=== PATIENT | female | born 1980 | race Caucasian/White ===

== ENCOUNTER 2025-04-01 18:13 | Emergency (ER) | payer BC, SELFPAY ==
--- OUTSIDE RECORDS SUMMARY | 2025-03-31 09:40 | XMS_ITS | Encounter Summary ---
Author Organization [facility] Address Counts include 234 beds at the [facility] [place] [address] Care Team Providers Care S[employer] Business [employer] Consultant Name Role Phone Heather Sauceda NP Primary Care Provider [phone] Reason for Referral * Medication Prior Authorization - Pending Review Specialty Diagnoses / Procedures Referred By Contac t Referred To Contact Diagnoses Migraine with aura and without status migrainosus, not intractable Heather Sauceda NP [address] [facility] [address] [place] [address] Phone: tel: fax: Referral ID Status Reason Start Date Expiration Date V isits Requested Visits Authorized [id number] Pending Review 06 24 Reason for Visit * Reason Comments Annual Patient is here for annual exam. 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 Will have a procedure April 12 to have it removed. Encounter Details Date Type Department Care Team (Late st Contact Info) Description 03/31/2025 9:40 AM CDT Office Visit [facility] - [place] [address] [place], [place] [id number] Heather Sauceda NP [address] [place], [place] [id number] Annual (Patient is here for annual exam. 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 Will have a procedure April 12 to have it removed. ) Social History Tobacco Use Types Packs/Day Years Used Date Smoking Tobacco: Former Cigarettes 0.5 10 Q uit: 05/04/2012 Passive Smoke Exposure: Past Smokeless Tobacco: Former Alcohol Use Standard Drinks/Week Comments Yes 23.3 (1 standard drink = 0.6 oz pure alcohol) 2 beers daily PHQ-2 Answer Date Recorded Patient Health Questionnaire-2 Score 0 03/31/2025 Comments No Sex and Gender Information Value Date Recorded Sex Assigned at Female 11/05/2024 7:22 AM CDT Legal Sex Female 10:54 AM CDT Gender Identity Female 11/24/2024 9:36 AM CDT Sexual Orientation Not on file documented as of this encounter Last Filed Vital Signs Vital Sign Reading Time Taken Comments Blood Pressure 158/102 03/31/2025 10:33 AM CDT Pulse 100 03/31/2025 10:02 AM CDT Temperature 36.8 C (98.3 F) 03/31/2025 10:02 AM CDT Respiratory Rate 20 03/31/2025 10:02 AM CDT Oxygen Saturation 100% 03/31/2025 10:02 AM CDT Inhaled Oxygen Concentration - - Weight 46.7 kg (103 lb) 03/31/2025 10:02 AM CDT Height 160 cm (5' 3) 03/31/2025 10:02 AM CDT Body Mass Index 18.25 03/31/2025 10:02 AM CDT documented in this encounter Functional Status * Over the past 2 weeks, how often have you been bothered by any of the following problems? Question Answer Date of Assessment Author Status Little interest or pleasure in doing things Not at all 03/31/2025 9:58 AM CDT Fozia Iniguez LP N Active Feeling down, depressed, or hopeless Not at all 03/31/2025 9:58 AM CDT Fozia Iniguez LPN Active Patient Health Questionnaire-2 Score 0 03/31/2025 9:58 AM CDT Fozia Iniguez LPN A ctive * Question Answer Date of Assessment Author Status Trouble falling or staying asleep, or sleeping too much Not at all 03/31/2025 9:58 AM CDT Fozia Iniguez LPN Active Feeling tired or having little energy Not at all 03/31/2025 9:58 AM CDT Fozia Iniguez LPN Active Poor appetite or overeating Several days 03/31/2025 9:58 AM CDT Fozia Iniguez LPN Active Feeling bad about yourself - or that you are a failure or have let yourself or your family down Not at all 03/31/2025 9:58 AM CDT Fozia Iniguez LPN Active Trouble concentrating on things, such as reading the newspaper or watching television Several days 03/31/2025 9:58 AM CDT Fozia Iniguez LPN Active Moving or speaking so slowly that other people could have noticed? Or the opposite - being so fidgety or restless that you have been moving around a lot more than usual. More than half the days 03/31/2025 9:58 AM CDT Fozia Iniguez LPN Active Thoughts that you would be better off or hurting yourself in some way Not at all 03/31/2025 9:58 AM CDT Fozia Iniguez LPN Active Patient Health Questionnaire-9 Score 4 03/31/2025 9:58 AM CDT Fozia Iniguez LPN Active * If you checked off any problems on this questionnaire so far, Question Answer Date of Assessment Author Status How difficult have these problems made it for you to do your work, take care of things at home, or get along with other people? Somewhat difficult 03/31/2025 9:58 AM CDT Fozia Iniguez LPN Active * Over the last 2 weeks, how often have you been bothered by any of the following problems? Question Answer Date of Assessment Author Status Feeling nervous, anxious, or on edge 3 03/31/2025 10:01 AM CDT Fozia Iniguez LPN Active Not being able to stop or control worrying 3 03/31/2025 10:01 AM CDT Fozia Iniguez LPN Activ e Worrying too much about different things 1 03/31/2025 10:01 AM CDT Fozia Iniguez LPN Activ e Trouble relaxing 3 03/31/2025 10:01 AM CDT Fozia Iniguez LPN Active Being so restless that it is hard to sit still 3 03/31/2025 10:01 AM CDT Fozia Iniguez LPN Acti ve Becoming easily annoyed or irritable 1 03/31/2025 10:01 AM CDT Foiza Iniguez LPN Active Feeling afraid as if something awful might happen 3 03/31/2025 10:01 AM CDT José Luis Iniguez LPN Active NIKOLAS-7 Total Score 17 03/31/2025 10:01 AM CDT Fozia Lopez LPN Active documented as of this encounter Patient Instructions * Patient Instructions* Heather Sauceda NP - 03/31/2025 9:40 AM CDT [facility] Address: [facility], [address] [place] [address] Add olmesartan Continue metoprolol Follow up in 1 mo documented in this encounter Progress Notes * Heather Sauceda NP - 03/31/2025 9:40 AM CDTSummary: annual physical Images from the original note were not included. ANNUAL PHYSICAL NOTES Encounter Date: 03/31/2025 Chief Complaint: 44-year-old female presents for Annual (Patient is here for annual exam. 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 Will have a procedure April 12 to have it removed. ) . HPI: The patient is being seen for a health maintenance evaluation. The last health maintenance exam wasone year ago. EGD showed gastric mass with Dr. Story, referred to [facility] unable to biopsy during EGD will need EUS scheduled [facility] April 12 Weight is steady previously had trouble with weight loss. Oatmeal with protein powder Rice with tuna [place] and ham sandwiches. Lunchables, bananas, pretzils czech yogurt Adds mcdonalds chicken nuggets if she exercises Abdominal migraine Stable improved with Elavil Saw neurology, added imitrex recommended treating like migraine attacks. Imitrex causes sedation and headaches sometimes. Anxiety Improved with Elavil, rare use of Ativan HTN BP elevated at home on metoprolol 100mg daily General Health: good Dental Health: Rare dental visits, Brushes regularly, and Flosses regularly Vision Health: Wears contacts Hearing Health: No hearing problems Immunizations Needed: Influenza Weight: Normal BMI Body mass index is 18.25 kg/m??. Physical Activity: Acitve lifestyle and cycling Cervical Cancer Screening: last done a few years ago, scheduled OBGYN May. Breast Cancer Screening: Last mammogram: 11/2024 Colorectal Cancer Screening: scheduled next year at age 45 however may do early at [facility] Metabolic Screening: Patient has not been screened previously within the past year. HCV Screening: Patient does not meet criteria for screening PHQ-9 Screening Score: PHQ-9: 03/31/2025 9:58 AM 12/16/2024 10:03 AM PHQ2/PHQ 9 DEPRESSION SCREEN QUESTIONAIRE Little interest or pleasure in doing things Not at all Not at all Feeling down, depressed, or hopeless Not at all Not at all Patient Health Questionnaire-2 Score 0 0 Trouble falling or staying asleep, or sleeping too much Not at all Not at all Feeling tired or having little energy Not at all Not at all Poor appetite or overeating Several days Not at all Feeling bad about yourself - or that you are a failure or have let yourself or your family down Notat all Not at all Trouble concentrating on things, such as reading the newspaper or watching television Several days Not at all Moving or speaking so slowly that other people could have noticed? Or the opposite - being so fidgety or restless that you have been moving around a lot more than usual. Over half Not at all Thoughts that you would be better off or hurting yourself in some way Not at all Not at all Patient Health Questionnaire-9 Score 4 0 How difficult have these problems made it for you to do your work, take care of things at home, or get along with other people? Somewhat difficult Not difficult at all NIKOLAS-7 (Generalized Anxiety Disorder) Screening 10/20/2024 3:10 PM 03/31/2025 10:01 AM NIKOLAS-7 Feeling nervous, anxious, or on edge 1 3 Not being able to stop or control worrying 1 3 Worrying too much about different things 0 1 Trouble relaxing 1 3 Being so restless that it is hard to sit still 0 3 Becoming easily annoyed or irritable 0 1 Feeling afraid as if something awful might happen 1 3 NIKOLAS-7 Total Score 4 17 How difficult have these problems made it for you to do your work, take care of things at home, or get along with other people? Extremely difficult Somewhat difficult Smoking Status: History Smoking Status Former Types: Cigarettes Smokeless Tobacco Former Patient does not meet criteria for Low Dose CT screening Sleep Apnea Risk Factors: None Review of Systems Constitutional: Negative for activity change, appetite change, fatigue, fever and unexpected weightchange. HENT: Negative. Eyes: Negative. Respiratory: Negative. Cardiovascular: Negative. Gastrointestinal: Negative. Endocrine: Negative. Genitourinary: Negative. Musculoskeletal: Negative. Skin: Negative. Neurological: Negative. Psychiatric/Behavioral: Negative. Patient Active Problem List Diagnosis Benign essential hypertension Generalized anxiety disorder Cyclical vomiting Sludge in gallbladder Migraine with aura and without status migrainosus, not intractable Nausea and vomiting, unspecified vomiting type Pain of upper abdomen Duodenogastric reflux History of gastritis Adenomatous duodenal polyp Gastric tumor Past Medical History[1] Past Surgical History[2] Family History[3] Social History Socioeconomic History Marital status: Spouse name: Not on file Number of children: Not on file Years of education: Not on file Highest education level: Not on file Occupational History Not on file Tobacco Use Smoking status: Former Current packs/day: 0.00 Average packs/day: 0.5 packs/day for 10.0 years (5.0 ttl pk-yrs) Types: Cigarettes Quit date: 05/04/2012 Years since quittin.9 Passive exposure: Past Smokeless tobacco: Former Vaping Use Vaping status: Every Day Substances: Nicotine Devices: Pre-filled pod Substance and Sexual Activity Alcohol use: Yes Alcohol/week: 23.3 standard drinks of alcohol Types: 14 Cans of beer per week Comment: 2 beers daily Drug use: Yes Types: Marijuana Sexual activity: Yes Partners: Male Other Topics Concern Not on file Social History Narrative Lives with spouse and step children. Social Drivers of Health Financial Resource Strain: Not on file Food Insecurity: Not on file Transportation Needs: Not on file Physical Activity: Not on file Stress: Not on file Social Connections: Not on file Intimate Partner Violence: Not on file Housing Stability: Not on file Immunization History Administered Date(s) Administered Fluzone (IIV3, Trivalent, 0.5 ML Prefilled Syringe) 03/31/2025 Influenza (Generic) 03/29/2024 Influenza Adult (Generic) 04/22/2019, 03/25/2022, 03/11/2023 PFIZER COVID-19 (12+) MRNA, LNP-S, PF, KEITH-SUCROSE, 30 MCG/0.3 ML (COMIRNATY) 03/11/2023, 03/29/2024 PFIZER COVID-19 (ORIGINAL FORMULATION, PURPLE CAP) mRNA, LNP-S, PF, 30 MCG/0.3 ML DOSE 08/29/2020, 09/26/2020, 04/25/2021 PFIZER COVID-19 BIVALENT (12+) mRNA, LNP-S, PF, 30 MCG/0.3 ML DOSE 03/25/2022 Tdap (Generic) 08/20/2024 Current Outpatient Medications Medication Sig Dispense Refill amitriptyline (ELAVIL) 50 MG tablet Take 1 tablet (50 mg total) by mouth nightly at bedtime. 90 tablet 1 cholestyramine (QUESTRAN) 4 G packet MIX AND DRINK 1 PACKET(4 GRAMS) BY MOUTH TWICE DAILY WITH MEALS 180 each 2 LORazepam (ATIVAN) 1 MG tablet Take 1 tablet (1 mg total) by mouth daily as needed. 30 tablet 0 metoprolol succinate ER (TOPROL-XL) 100 MG 24 hr tablet Take 1 tablet (100 mg total) by mouth daily. 30 tablet 0 Na sulfate-K sulfate-Mg sulfate (SUPREP BOWEL PREP) 17.5-3.13-1.6 GM/177ML Solution Take 177 mLs bymouth every 12 (twelve) hours. See [facility] mL 0 olmesartan (BENICAR) 20 MG tablet Take 1 tablet (20 mg total) by mouth daily. 30 tablet 2 ondansetron (ZOFRAN-ODT) 4 MG disintegrating tablet Take 1 tablet (4 mg total) by mouth every 8 (eight) hours as needed for Nausea. 30 tablet 0 pantoprazole EC (PROTONIX) 40 MG tablet TAKE 1 TABLET(40 MG) BY MOUTH DAILY 90 tablet 2 SUMAtriptan (IMITREX) 50 MG tablet Take 1 tablet (50 mg total) by mouth 2 (two) times daily as needed for Migraine. Max of 4 tablets (200 mg) in 24 hours. 30 tablet 11 ubrogepant (UBRELVY) 100 MG tablet Take 1 tablet (100 mg total) by mouth daily as needed for Migraine. May repeat dose in 2 hours. Max of 2 tablets (200 mg) in 24 hours 10 tablet 1 No current facility-administered medications for this visit. Current Outpatient Medications on File Prior to Visit Medication Sig amitriptyline (ELAVIL) 50 MG tablet Take 1 tablet (50 mg total) by mouth nightly at bedtime. cholestyramine (QUESTRAN) 4 G packet MIX AND DRINK 1 PACKET(4 GRAMS) BY MOUTH TWICE DAILY WITH MEALS metoprolol succinate ER (TOPROL-XL) 100 MG 24 hr tablet Take 1 tablet (100 mg total) by mouth daily. Na sulfate-K sulfate-Mg sulfate (SUPREP BOWEL PREP) 17.5-3.13-1.6 GM/177ML Solution Take 177 mLs bymouth every 12 (twelve) hours. See GI instructions [facility] ondansetron (ZOFRAN-ODT) 4 MG disintegrating tablet Take 1 tablet (4 mg total) by mouth every 8 (eight) hours as needed for Nausea. pantoprazole EC (PROTONIX) 40 MG tablet TAKE 1 TABLET(40 MG) BY MOUTH DAILY SUMAtriptan (IMITREX) 50 MG tablet Take 1 tablet (50 mg total) by mouth 2 (two) times daily as needed for Migraine. Max of 4 tablets (200 mg) in 24 hours. No current facility-administered medications on file prior to visit. Review of patient's allergies indicates: No Known Allergies Objective: Filed Vitals: 03/31/25 1002 03/31/25 1033 BP: (!) 151/117 (!) 158/102 Pulse: 100 Resp: 20 Temp: 98.3 ??F (36.8 ??C) TempSrc: Core SpO2: 100% Weight: 46.7 kg (103 lb) Height: 1.6 m (5' 3) Physical Exam Constitutional: Appearance: Normal appearance. HENT: Right Ear: Tympanic membrane and ear canal normal. Left Ear: Tympanic membrane and ear canal normal. Mouth/Throat: Mouth: Mucous membranes are moist. Eyes: Pupils: Pupils are equal, round, and reactive to light. Neck: Thyroid: No thyroid mass, thyromegaly or thyroid tenderness. Cardiovascular: Rate and Rhythm: Normal rate and regular rhythm. Heart sounds: Normal heart sounds. No murmur heard. Pulmonary: Effort: Pulmonary effort is normal. No respiratory distress. Breath sounds: Normal breath sounds. No wheezing. Abdominal: General: Abdomen is flat. Bowel sounds are normal. Palpations: Abdomen is soft. Tenderness: There is no abdominal tenderness. Musculoskeletal: Cervical back: Normal range of motion and neck supple. Right lower leg: No edema. Left lower leg: No edema. Lymphadenopathy: Cervical: No cervical adenopathy. Skin: General: Skin is warm and dry. Neurological: General: No focal deficit present. Mental Status: She is alert. Psychiatric: Mood and Affect: Mood normal. Behavior: Behavior normal. Procedures Assessment & Plan: Neva was seen today for annual. Diagnoses and all orders for this visit: Annual physical exam -Patient past medical, surgical, family history and social history updated. Allergies, immunizations and medications updated. Also did discuss healthy lifestyle including exercising, dietary changes and safe sexual practices as well as safe habits common to patient age group including wearing seat belt when transporting in a vehicle and limiting alcohol and avoiding smoking/second hand smoking. -Discussed breast cancer screening and screen per patient preference and guidelines. Self-breast exams are a level D recommendation by the USPSTF. Follow up with primary care provider or gynecologistif any abnormalities are noted. Mammograms should continue annually. Reviewed with the patient BMI,blood pressure, diet, exercise, and encouraged healthy lifestyle choices. I recommended weight-bearing exercise to decrease risks of osteoporosis. Screened for substance use, risk factors for STIs, diet and exercise habits, and symptoms of depression. Colon screening starting at 45. Recommended preventive immunizations according to age Mammogram UTD Colonoscopy will be completed next year unless sooner by GI at [facility] Flu shot today Scheduled with OBGYN May Anxiety Stable with Amitriptyline, rare use of Ativan. Refill PRN. - LORazepam (ATIVAN) 1 MG tablet; Take 1 tablet (1 mg total) by mouth daily as needed. Migraine with aura and without status migrainosus, not intractable Continue Elavil daily Sumatriptan causes sedation and headaches. Order Ubrelvy. - ubrogepant (UBRELVY) 100 MG tablet; Take 1 tablet (100 mg total) by mouth daily as needed for Migraine. May repeat dose in 2 hours. Max of 2 tablets (200 mg) in 24 hours Gastric tumor Recent EGD, EUS at [facility] on 04/12 Adenomatous duodenal polyp Removed, follow up with GI Need for immunization against influenza - [68814] Flu Vaccine, 0.5 mL, 6+ Months (Single Dose Syringe Fluarix, Fluzone, Flulaval, or Afluria) Benign essential hypertension Elevated today and at home Continue metoprolol, add olmesartan - olmesartan (BENICAR) 20 MG tablet; Take 1 tablet (20 mg total) by mouth daily. I personally spent a total of 45 minutes on the day of the encounter. This includes qxmo-cw-ivxy and qur-lywl-lt-face time I provided on the day of the encounter & excludes time spent performing separately reportable services. RTC 1 mo HTN, gastric mass s/p EGD, migraines DILAN: This dictation was at least in part performed using [employer] speak and there may be some inherent flaws in this tabulating clerk due to the nature of this program. HEATHER SAUCEAD NP 03/31/2025 [1] Past Medical History: Diagnosis Date Anxiety Depression Hypertension On BP medicine to control [2] Past Surgical History: Procedure Laterality Date EGD EXTRACT ERUPT TOOTH PONV [3] Family History Problem Relation Name Age of Onset Hypertension Mother Kailyn Fiber myalgia, depression, brain anyeresum, migraines Anxiety Mother Kailyn Depression Mother Kailyn Heart Attack Father Diabetes Maternal Grandfather Korey singh Diabetes Paternal Grandfather Heart Attack Paternal Grandfather documented in this encounter Plan of Treatment Upcoming Encounters Date Type Department Care Team (Latest Contact Info) Description 04/21/2025 9:00 AM CDT Office Visit [facility] [address] [facility] [address] [place] [address] Amirah Martinez NP [address] [facility] [address] [place] [address] 05/12/2025 9:00 AM BUILDING PERFORMANCE SPECIALIST [facility] [place] [address] [place] [address] Heather Sauceda NP [address] [place] [address] 11/09/2025 8:20 AM CDT Hospital Encounter [facility] [address] [place] [address] Osvaldo Story MD [address] [facility] [address] [place] [id number] 11/09/2025 8:20 AM CDT - 11/09/2025 8:53 AM CDT Surgery [facility] [address] [place] [address] Osvaldo Story MD [address] [facility] [address] [place] [id number] COLONOSCOPY SCREENING Scheduled Procedures Name Priority Associated Diagnoses Date/Ti me COLONOSCOPY SCREENING Encounter for screening colonoscopy 11/09/2025 8:20 AM CDT documented as of this encounter Visit Diagnoses Diagnosis Annual physical exam- Primary Routine general medical examination at a health care facility Anxiety Anxiety state, unspecified Migraine with aura and without status migrainosus, not intractable Migraine with aura, without mention of intractable migraine without mention of status migrainosus Gastric tumor Neoplasm of unspecified nature of digestive system Adenomatous duodenal polyp Other specified disorder of stomach and duodenum Need for immunization against influenza Need for prophylactic vaccination and inoculation against influenza Benign essential hypertension Essential hypertension, benign Encounter for screening colonoscopy Special screening for malignant neoplasms, colon documented in this encounter Additional Health Concerns Assessment Noted Time PHQ-9 Depression Total Score: 4 03/31/20 25 9:58 AM CDT documented as of this encounter Care Teams [employer] Business [employer] Consultant Relationship Specialty Start Date End Date Heather Sauceda, CELL BIOLOGIST [address] [facility] [address] [place] [address] PCP - General NURSE PRACTITIONER 10/07/24 documented as of this encounter
[2025-04-01] VITALS (11 sets, daily range): BP systolic 130–201; BP diastolic 87–145; PULSE 123–151; RESP 14–35; TEMP 37.1–37.7; O2SAT 98–100
--- NOTE | ~2025-04-01 | CT_ITS ---
CT abdomen pelvis w con Clinical History: abdominal pain . Comparison: None Technique: Axial images lung bases to symphysis pubis 100 mL Omnipaque 350 Coronal, sagittal reformats CT images acquired with automatic exposure control for dose reduction DLP: 201 mGy-cm Findings: Lung bases: Clear. Visualized heart and pericardium: Unremarkable. Liver: Steatosis. Mildly enlarged. Gallbladder: Unremarkable. Spleen: Unremarkable. Pancreas: Unremarkable. Adrenal glands: Unremarkable. Kidneys: Right kidney- No hydronephrosis. No renal stones. Left kidney- No hydronephrosis. No renal stones. Distal esophagus/stomach: Apparent wall thickening gastric antrum likely merely underdistention. Small bowel loops: Normal caliber and wall thickness. Colon: Diffuse wall thickening. Normal appendix. Nodes: No enlarged nodes. Peritoneum: No ascites. No free air. Urinary bladder: Unremarkable. Uterus: Nabothian cysts. 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 Adnexa: No masses. Prominent cystic focus right side deep hemipelvis. Bones: No acute bony abnormality. Soft tissues: Unremarkable. Aorta: No aneurysm or dissection. IVC: Unremarkable. Main portal vein/SMV/splenic vein: Patent. Findings conveyed via telephone by myself to Dr. Gallo at 10:00 AM EST. IMPRESSION: 1. Colitis. Reviewed, dictated and finalized at location R. IMPRESSION: 1. Colitis.
--- NOTE | 2025-04-01 18:28 | ED_ITS ---
HPI - General Adult General Chief complaint: Nausea/Vomiting/Diarrhea <Tia Vargas October, - Last Filed: 04/01/25 18:39> Stated complaint: Vomiting abdominal pain. 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 Complains of having severe upper abdominal pain. GENERAL: in no acute distress. HEAD: Normocephalic, atraumatic. CHEST: Clear to auscultation. ?No respiratory distress. HEART: Regular rate and rhythm.? NEURO: ?Alert and oriented x3. Patient screened in triage and initial orders placed.? ?Additional care and disposition to be based upon?diagnostic testing and treatment. 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 Complains of having severe upper abdominal pain. GENERAL: in no acute distress. HEAD: Normocephalic, atraumatic. CHEST: Clear to auscultation. ?No respiratory distress. HEART: Regular rate and rhythm.? NEURO: ?Alert and oriented x3. Patient screened in triage and initial orders placed.? ?Additional care and disposition to be based upon?diagnostic testing and treatment. <Rosina Wang, AUDIO VISUAL DESIGN ENGINEER - Last Filed: 04/02/25 01:29> History of Present Illness HPI narrative: I agree with the HPI above. <Rosina Wang, AUDIO VISUAL DESIGN ENGINEER - Last Filed: 04/02/25 01:29> Related Data Allergies/adverse reactions: Allergies Allergy/AdvReac Type Severity Reaction Status Date / Time No Known Allergies Allergy Verified 04/01/25 18:16 <Tia Urbina, AUDIO VISUAL DESIGN ENGINEER - Last Filed: 04/01/25 18:39> Review of Systems 2 Review of Systems: All systems reviewed & are unremarkable except as noted in HPI and below <Rosina Wang APRN - Last Filed: 04/02/25 01:29> Exam 2 Narrative: GENERAL: Ill appearing, well-nourished, non-toxic, in mild distress due to pain. HEAD: Normocephalic, atraumatic. NECK: Supple. No adenopathy, no masses. RESPIRATORY: Airway patent, respirations nonlabored. Clear to auscultation bilaterally, no rales, rhonchi, wheezing. CARDIOVASCULAR: Tachycardia without murmurs, rubs, or gallops. Peripheral pulses 2+ and equal bilaterally. ABDOMINAL: Soft, generalized tenderness, nondistended, no hepatosplenomegaly. Normoactive BS. MUSCULOSKELETAL: Moves all extremities. Strength/ROM intact without gross deformities. SKIN: Warm, dry, normal color. No rashes. NEURO: A&O X3. Speech clear. Cranial nerves II-XII intact. No ataxic movements. PSYCHIATRIC: Appropriate mood and affect. Normal interaction. <Rosina Wang, AUDIO VISUAL DESIGN ENGINEER - Last Filed: 04/02/25 01:29> Course Vital Signs Vital signs: Vital Signs Temperature 99.9 F H 04/01/25 19:29 Pulse Rate 141 H 04/01/25 19:29 Respiratory Rate 18 04/01/25 19:29 Blood Pressure 187/133 H 04/01/25 19:29 Pulse Oximetry 100 04/01/25 19:29 Oxygen Delivery Room Air 04/01/25 19:29 Temperature 98.7 F 04/01/25 22:59 Pulse Rate 140 H 04/02/25 01:20 Respiratory Rate 17 04/02/25 00:31 Blood Pressure 133/89 04/02/25 00:31 Pulse Oximetry 99 04/02/25 01:07 Oxygen Delivery Room Air 04/01/25 19:29 <Tia Urbina, AUDIO VISUAL DESIGN ENGINEER - Last Filed: 04/01/25 18:39> Vital Signs Temperature 99.9 F H 04/01/25 19:29 Pulse Rate 141 H 04/01/25 19:29 Respiratory Rate 18 04/01/25 19:29 Blood Pressure 187/133 H 04/01/25 19:29 Pulse Oximetry 100 04/01/25 19:29 Oxygen Delivery Room Air 04/01/25 19:29 Temperature 98.7 F 04/01/25 22:59 Pulse Rate 140 H 04/02/25 01:20 Respiratory Rate 17 04/02/25 00:31 Blood Pressure 133/89 04/02/25 00:31 Pulse Oximetry 99 04/02/25 01:07 Oxygen Delivery Room Air 04/01/25 19:29 <Rosina Wang, ALONZO - Last Filed: 04/02/25 01:29> Vital Signs Temperature 99.9 F H 04/01/25 19:29 Pulse Rate 141 H 04/01/25 19:29 Respiratory Rate 18 04/01/25 19:29 Blood Pressure 187/133 H 04/01/25 19:29 Pulse Oximetry 100 04/01/25 19:29 Oxygen Delivery Room Air 04/01/25 19:29 Temperature 98.7 F 04/01/25 22:59 Pulse Rate 140 H 04/02/25 01:20 Respiratory Rate 17 04/02/25 00:31 Blood Pressure 133/89 04/02/25 00:31 Pulse Oximetry 99 04/02/25 01:07 Oxygen Delivery Room Air 04/01/25 19:29 <Brown Gallo MD - Last Filed: 04/02/25 09:13> Medical Decision Making MDM Narrative Medical decision making narrative: Neva Gonzalez is a 44 y/o with PMhx of pyloric valve dysfunction, abdominal migraines, and 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 Pt reports she uses marijuana intermittently. Labs Ordered: CBC, CMP, lipase, UA, UDS, lactic acid Imaging Ordered: CT abdomen/pelvis Medications Ordered: 2 L normal saline IV bolus, Zofran 4 mg IV, hydralazine 20 mg IV, GI cocktail p.o., Haldol 5 mg IM Patient has chosen to refuse further care. Risks of an incomplete evaluation and treatment were discussed with the patient, including potential for or permanent disability. After treatment of her symptoms patient's heart rate remains in the 140s. Patient seems to understand the risks associated with this, but still desires to refuse further care. Patient recommended to follow up with PCP in the next possible interval. Specifically, patient was told they can return to the ED at any time to resume care. 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 Pt reports she uses marijuana intermittently. Labs Ordered: CBC, CMP, lipase, UA, UDS, lactic acid Imaging Ordered: CT abdomen/pelvis Medications Ordered: 2 L normal saline IV bolus, Zofran 4 mg IV, hydralazine 20 mg IV, GI cocktail p.o., Haldol 5 mg IM Patient has chosen to refuse further care. Risks of an incomplete evaluation and treatment were discussed with the patient, including potential for or permanent disability. After treatment of her symptoms patient's heart rate remains in the 140s. Patient seems to understand the risks associated with this, but still desires to refuse further care. Patient recommended to follow up with PCP in the next possible interval. Specifically, patient was told they can return to the ED at any time to resume care. --- marlon 9:11 AM Radiology called and provided an over read for the CT scan and stated that the CT does show a pancolitis. I did call the patient and left a message for her to call back. <Brown Gallo MD - Last Filed: 04/02/25 09:13> Differential Diagnosis Differential Diagnosis: Cannabinoid hyperemesis, abdominal migraines, pancreatitis, abdominal mass <Rosina Wang, ALONZO - Last Filed: 04/02/25 01:29> Vital Signs Vital Signs: Vital Signs Temperature 99.9 F H 04/01/25 19:29 Pulse Rate 141 H 04/01/25 19:29 Respiratory Rate 18 04/01/25 19:29 Blood Pressure 187/133 H 04/01/25 19:29 Pulse Oximetry 100 04/01/25 19:29 Oxygen Delivery Room Air 04/01/25 19:29 Temperature 98.7 F 04/01/25 22:59 Pulse Rate 140 H 04/02/25 01:20 Respiratory Rate 17 04/02/25 00:31 Blood Pressure 133/89 04/02/25 00:31 Pulse Oximetry 99 04/02/25 01:07 Oxygen Delivery Room Air 04/01/25 19:29 <Tia Urbina, AUDIO VISUAL DESIGN ENGINEER - Last Filed: 04/01/25 18:39> Vital Signs Temperature 99.9 F H 04/01/25 19:29 Pulse Rate 141 H 04/01/25 19:29 Respiratory Rate 18 04/01/25 19:29 Blood Pressure 187/133 H 04/01/25 19:29 Pulse Oximetry 100 04/01/25 19:29 Oxygen Delivery Room Air 04/01/25 19:29 Temperature 98.7 F 04/01/25 22:59 Pulse Rate 140 H 04/02/25 01:20 Respiratory Rate 17 04/02/25 00:31 Blood Pressure 133/89 04/02/25 00:31 Pulse Oximetry 99 04/02/25 01:07 Oxygen Delivery Room Air 04/01/25 19:29 <Rosina Wang, AUDIO VISUAL DESIGN ENGINEER - Last Filed: 04/02/25 01:29> Vital Signs Temperature 99.9 F H 04/01/25 19:29 Pulse Rate 141 H 04/01/25 19:29 Respiratory Rate 18 04/01/25 19:29 Blood Pressure 187/133 H 04/01/25 19:29 Pulse Oximetry 100 04/01/25 19:29 Oxygen Delivery Room Air 04/01/25 19:29 Temperature 98.7 F 04/01/25 22:59 Pulse Rate 140 H 04/02/25 01:20 Respiratory Rate 17 04/02/25 00:31 Blood Pressure 133/89 04/02/25 00:31 Pulse Oximetry 99 04/02/25 01:07 Oxygen Delivery Room Air 04/01/25 19:29 <Brown Gallo MD - Last Filed: 04/02/25 09:13> Lab Data Lab results reviewed: Yes I reviewed the patient's lab results. <Rosina Wang, AUDIO VISUAL DESIGN ENGINEER - Last Filed: 04/02/25 01:29> Result diagrams: 04/01/25 19:41 04/01/25 19:41 <Tia Urbina, AUDIO VISUAL DESIGN ENGINEER - Last Filed: 04/01/25 18:39> Labs: Lab Results 04/01/25 04/01/25 04/01/25 Range/Units 19:41 21:37 22:26 WBC 13.2 H (4.5-10.0) K/mm3 RBC 4.33 (4.2-5.4) M/mm3 Hgb 13.9 (12.0-15.0) g/dL Hct 40.6 (37.0-47.0) % MCV 93.8 (80-100) fl MCH 32.1 (26-34) pg MCHC 34.2 (32-36) g/dl RDW 11.7 (11.5-14.5) % Plt Count 344 (150-375) k/mm3 MPV 8.9 (7.4-10.4) fl Immature Gran % (Auto) 0.3 (0-0.5) % Neut % (Auto) 82.7 H (45.5-73.1) % Lymph % (Auto) 11.3 L (18.3-44.2) % [place] % (Auto) 5.4 (2.6-8.5) % Eos % (Auto) 0.0 (0-4.4) % Baso % (Auto) 0.3 (0.2-1.2) % Lymph # (Auto) 1.50 (0.9-3.2) K/mm3 [place] # (Auto) 0.7 H (0.1-0.6) K/mm3 Eos # (Auto) 0.0 (0-0.3) K/mm3 Baso # (Auto) 0.0 (0.0-0.1) K/mm3 Abs Immat Gran (auto) 0.04 H (0.00-0.031) K/mm3 Absolute Neuts (auto) 10.9 H (1.3-6.7) K/mm3 Absolute Nucleated RBC 0.000 (0.0-0.012) K/mm3 Nucleated RBC % 0.0 (0.0-0.2) % Sodium 131 L (137-145) mmol/L Potassium 3.6 (3.4-5.0) mmol/L Chloride 95 L (98-107) mmol/L Carbon Dioxide 22 (22-30) mmol/L Anion Gap 14 H (4-12) mmol/L BUN 6 L (7-17) mg/dL Creatinine 0.75 (0.7-1.0) mg/dL Estim Creat Clear Calc 58 ml/min Estimated GFR > 60 (59 - ) Glucose 102 (65-110) mg/dL Lactic Acid 1.6 (0.7-2.0) mmol/L Calcium 9.7 (8.4-10.2) mg/dL Total Bilirubin 1.0 (0.2-1.3) mg/dL AST 41 H (14-36) U/L ALT 27 (6-35) U/L Alkaline Phosphatase 69 (38-126) U/L Total Protein 8.6 H (6.3-8.2) g/dL Albumin 5.0 (3.5-5.1) g/dL Lipase 132 (23-300) U/L Urine Color (Yellow) Urine Appearance (Clear) Urine pH (5.0-9.0) Ur Specific [place] (1.001-1.035) Urine Protein (Negative) mg/dL Urine Glucose (UA) (Negative) mg/dL Urine Ketones (Negative) mg/dL Ur Blood (Man) (Negative) Urine Nitrate (Negative) Urine Bilirubin (Negative) Urine Urobilinogen (<2.0) mg/dL Leukocyte Esterase Rfl (Negative) RADAMES/UL Urine RBC (0-2) /hpf Urine WBC (0-3) /hpf Ur Squamous Epith Cells (Few) /hpf Urine Bacteria /hpf Urine Casts POC Urine HCG, Qual Negative (Negative) Urine Opiates Screen (Negative) Urine Methadone Screen (Negative) Ur Barbiturates Screen (Negative) Ur Phencyclidine Scrn (Negative) Ur Amphetamine Screen (Negative) U Benzodiazepines Scrn (Negative) Urine Cocaine Screen (Negative) U Cannabinoids Screen (Negative) 04/01/25 Range/Units 23:17 WBC (4.5-10.0) K/mm3 RBC (4.2-5.4) M/mm3 Hgb (12.0-15.0) g/dL Hct (37.0-47.0) % MCV (80-100) fl MCH (26-34) pg MCHC (32-36) g/dl RDW (11.5-14.5) % Plt Count (150-375) k/mm3 MPV (7.4-10.4) fl Immature Gran % (Auto) (0-0.5) % Neut % (Auto) (45.5-73.1) % Lymph % (Auto) (18.3-44.2) % [place] % (Auto) (2.6-8.5) % Eos % (Auto) (0-4.4) % Baso % (Auto) (0.2-1.2) % Lymph # (Auto) (0.9-3.2) K/mm3 [place] # (Auto) (0.1-0.6) K/mm3 Eos # (Auto) (0-0.3) K/mm3 Baso # (Auto) (0.0-0.1) K/mm3 Abs Immat Gran (auto) (0.00-0.031) K/mm3 Absolute Neuts (auto) (1.3-6.7) K/mm3 Absolute Nucleated RBC (0.0-0.012) K/mm3 Nucleated RBC % (0.0-0.2) % Sodium (137-145) mmol/L Potassium (3.4-5.0) mmol/L Chloride (98-107) mmol/L Carbon Dioxide (22-30) mmol/L Anion Gap (4-12) mmol/L BUN (7-17) mg/dL Creatinine (0.7-1.0) mg/dL Estim Creat Clear Calc ml/min Estimated GFR (59 - ) Glucose (65-110) mg/dL Lactic Acid (0.7-2.0) mmol/L Calcium (8.4-10.2) mg/dL Total Bilirubin (0.2-1.3) mg/dL AST (14-36) U/L ALT (6-35) U/L Alkaline Phosphatase (38-126) U/L Total Protein (6.3-8.2) g/dL Albumin (3.5-5.1) g/dL Lipase (23-300) U/L Urine Color Yellow (Yellow) Urine Appearance Clear (Clear) Urine pH 6.0 (5.0-9.0) Ur Specific [place] 1.009 (1.001-1.035) Urine Protein Trace (Negative) mg/dL Urine Glucose (UA) Negative (Negative) mg/dL Urine Ketones 2+ H (Negative) mg/dL Ur Blood (Man) 2+ H (Negative) Urine Nitrate Negative (Negative) Urine Bilirubin Negative (Negative) Urine Urobilinogen 0.2 (<2.0) mg/dL Leukocyte Esterase Rfl Negative (Negative) RADAMES/UL Urine RBC 0-2 (0-2) /hpf Urine WBC 0-5 (0-3) /hpf Ur Squamous Epith Cells Few (Few) /hpf Urine Bacteria 3+ H /hpf Urine Casts 0-2 POC Urine HCG, Qual (Negative) Urine Opiates Screen Negative (Negative) Urine Methadone Screen Negative (Negative) Ur Barbiturates Screen Negative (Negative) Ur Phencyclidine Scrn Negative (Negative) Ur Amphetamine Screen Negative (Negative) U Benzodiazepines Scrn Negative (Negative) Urine Cocaine Screen Negative (Negative) U Cannabinoids Screen Negative (Negative) <Tia Urbina, AUDIO VISUAL DESIGN ENGINEER - Last Filed: 04/01/25 18:39> Lab Results 04/01/25 04/01/25 04/01/25 Range/Units 19:41 21:37 22:26 WBC 13.2 H (4.5-10.0) K/mm3 RBC 4.33 (4.2-5.4) M/mm3 Hgb 13.9 (12.0-15.0) g/dL Hct 40.6 (37.0-47.0) % MCV 93.8 (80-100) fl MCH 32.1 (26-34) pg MCHC 34.2 (32-36) g/dl RDW 11.7 (11.5-14.5) % Plt Count 344 (150-375) k/mm3 MPV 8.9 (7.4-10.4) fl Immature Gran % (Auto) 0.3 (0-0.5) % Neut % (Auto) 82.7 H (45.5-73.1) % Lymph % (Auto) 11.3 L (18.3-44.2) % [place] % (Auto) 5.4 (2.6-8.5) % Eos % (Auto) 0.0 (0-4.4) % Baso % (Auto) 0.3 (0.2-1.2) % Lymph # (Auto) 1.50 (0.9-3.2) K/mm3 [place] # (Auto) 0.7 H (0.1-0.6) K/mm3 Eos # (Auto) 0.0 (0-0.3) K/mm3 Baso # (Auto) 0.0 (0.0-0.1) K/mm3 Abs Immat Gran (auto) 0.04 H (0.00-0.031) K/mm3 Absolute Neuts (auto) 10.9 H (1.3-6.7) K/mm3 Absolute Nucleated RBC 0.000 (0.0-0.012) K/mm3 Nucleated RBC % 0.0 (0.0-0.2) % Sodium 131 L (137-145) mmol/L Potassium 3.6 (3.4-5.0) mmol/L Chloride 95 L (98-107) mmol/L Carbon Dioxide 22 (22-30) mmol/L Anion Gap 14 H (4-12) mmol/L BUN 6 L (7-17) mg/dL Creatinine 0.75 (0.7-1.0) mg/dL Estim Creat Clear Calc 58 ml/min Estimated GFR > 60 (59 - ) Glucose 102 (65-110) mg/dL Lactic Acid 1.6 (0.7-2.0) mmol/L Calcium 9.7 (8.4-10.2) mg/dL Total Bilirubin 1.0 (0.2-1.3) mg/dL AST 41 H (14-36) U/L ALT 27 (6-35) U/L Alkaline Phosphatase 69 (38-126) U/L Total Protein 8.6 H (6.3-8.2) g/dL Albumin 5.0 (3.5-5.1) g/dL Lipase 132 (23-300) U/L Urine Color (Yellow) Urine Appearance (Clear) Urine pH (5.0-9.0) Ur Specific [place] (1.001-1.035) Urine Protein (Negative) mg/dL Urine Glucose (UA) (Negative) mg/dL Urine Ketones (Negative) mg/dL Ur Blood (Man) (Negative) Urine Nitrate (Negative) Urine Bilirubin (Negative) Urine Urobilinogen (<2.0) mg/dL Leukocyte Esterase Rfl (Negative) RADAMES/UL Urine RBC (0-2) /hpf Urine WBC (0-3) /hpf Ur Squamous Epith Cells (Few) /hpf Urine Bacteria /hpf Urine Casts POC Urine HCG, Qual Negative (Negative) Urine Opiates Screen (Negative) Urine Methadone Screen (Negative) Ur Barbiturates Screen (Negative) Ur Phencyclidine Scrn (Negative) Ur Amphetamine Screen (Negative) U Benzodiazepines Scrn (Negative) Urine Cocaine Screen (Negative) U Cannabinoids Screen (Negative) 04/01/25 Range/Units 23:17 WBC (4.5-10.0) K/mm3 RBC (4.2-5.4) M/mm3 Hgb (12.0-15.0) g/dL Hct (37.0-47.0) % MCV (80-100) fl MCH (26-34) pg MCHC (32-36) g/dl RDW (11.5-14.5) % Plt Count (150-375) k/mm3 MPV (7.4-10.4) fl Immature Gran % (Auto) (0-0.5) % Neut % (Auto) (45.5-73.1) % Lymph % (Auto) (18.3-44.2) % [place] % (Auto) (2.6-8.5) % Eos % (Auto) (0-4.4) % Baso % (Auto) (0.2-1.2) % Lymph # (Auto) (0.9-3.2) K/mm3 [place] # (Auto) (0.1-0.6) K/mm3 Eos # (Auto) (0-0.3) K/mm3 Baso # (Auto) (0.0-0.1) K/mm3 Abs Immat Gran (auto) (0.00-0.031) K/mm3 Absolute Neuts (auto) (1.3-6.7) K/mm3 Absolute Nucleated RBC (0.0-0.012) K/mm3 Nucleated RBC % (0.0-0.2) % Sodium (137-145) mmol/L Potassium (3.4-5.0) mmol/L Chloride (98-107) mmol/L Carbon Dioxide (22-30) mmol/L Anion Gap (4-12) mmol/L BUN (7-17) mg/dL Creatinine (0.7-1.0) mg/dL Estim Creat Clear Calc ml/min Estimated GFR (59 - ) Glucose (65-110) mg/dL Lactic Acid (0.7-2.0) mmol/L Calcium (8.4-10.2) mg/dL Total Bilirubin (0.2-1.3) mg/dL AST (14-36) U/L ALT (6-35) U/L Alkaline Phosphatase (38-126) U/L Total Protein (6.3-8.2) g/dL Albumin (3.5-5.1) g/dL Lipase (23-300) U/L Urine Color Yellow (Yellow) Urine Appearance Clear (Clear) Urine pH 6.0 (5.0-9.0) Ur Specific [place] 1.009 (1.001-1.035) Urine Protein Trace (Negative) mg/dL Urine Glucose (UA) Negative (Negative) mg/dL Urine Ketones 2+ H (Negative) mg/dL Ur Blood (Man) 2+ H (Negative) Urine Nitrate Negative (Negative) Urine Bilirubin Negative (Negative) Urine Urobilinogen 0.2 (<2.0) mg/dL Leukocyte Esterase Rfl Negative (Negative) RADAMES/UL Urine RBC 0-2 (0-2) /hpf Urine WBC 0-5 (0-3) /hpf Ur Squamous Epith Cells Few (Few) /hpf Urine Bacteria 3+ H /hpf Urine Casts 0-2 POC Urine HCG, Qual (Negative) Urine Opiates Screen Negative (Negative) Urine Methadone Screen Negative (Negative) Ur Barbiturates Screen Negative (Negative) Ur Phencyclidine Scrn Negative (Negative) Ur Amphetamine Screen Negative (Negative) U Benzodiazepines Scrn Negative (Negative) Urine Cocaine Screen Negative (Negative) U Cannabinoids Screen Negative (Negative) <Rosina Wang, AUDIO VISUAL DESIGN ENGINEER - Last Filed: 04/02/25 01:29> Lab Results 04/01/25 04/01/25 04/01/25 Range/Units 19:41 21:37 22:26 WBC 13.2 H (4.5-10.0) K/mm3 RBC 4.33 (4.2-5.4) M/mm3 Hgb 13.9 (12.0-15.0) g/dL Hct 40.6 (37.0-47.0) % MCV 93.8 (80-100) fl MCH 32.1 (26-34) pg MCHC 34.2 (32-36) g/dl RDW 11.7 (11.5-14.5) % Plt Count 344 (150-375) k/mm3 MPV 8.9 (7.4-10.4) fl Immature Gran % (Auto) 0.3 (0-0.5) % Neut % (Auto) 82.7 H (45.5-73.1) % Lymph % (Auto) 11.3 L (18.3-44.2) % [place] % (Auto) 5.4 (2.6-8.5) % Eos % (Auto) 0.0 (0-4.4) % Baso % (Auto) 0.3 (0.2-1.2) % Lymph # (Auto) 1.50 (0.9-3.2) K/mm3 [place] # (Auto) 0.7 H (0.1-0.6) K/mm3 Eos # (Auto) 0.0 (0-0.3) K/mm3 Baso # (Auto) 0.0 (0.0-0.1) K/mm3 Abs Immat Gran (auto) 0.04 H (0.00-0.031) K/mm3 Absolute Neuts (auto) 10.9 H (1.3-6.7) K/mm3 Absolute Nucleated RBC 0.000 (0.0-0.012) K/mm3 Nucleated RBC % 0.0 (0.0-0.2) % Sodium 131 L (137-145) mmol/L Potassium 3.6 (3.4-5.0) mmol/L Chloride 95 L (98-107) mmol/L Carbon Dioxide 22 (22-30) mmol/L Anion Gap 14 H (4-12) mmol/L BUN 6 L (7-17) mg/dL Creatinine 0.75 (0.7-1.0) mg/dL Estim Creat Clear Calc 58 ml/min Estimated GFR > 60 (59 - ) Glucose 102 (65-110) mg/dL Lactic Acid 1.6 (0.7-2.0) mmol/L Calcium 9.7 (8.4-10.2) mg/dL Total Bilirubin 1.0 (0.2-1.3) mg/dL AST 41 H (14-36) U/L ALT 27 (6-35) U/L Alkaline Phosphatase 69 (38-126) U/L Total Protein 8.6 H (6.3-8.2) g/dL Albumin 5.0 (3.5-5.1) g/dL Lipase 132 (23-300) U/L Urine Color (Yellow) Urine Appearance (Clear) Urine pH (5.0-9.0) Ur Specific [place] (1.001-1.035) Urine Protein (Negative) mg/dL Urine Glucose (UA) (Negative) mg/dL Urine Ketones (Negative) mg/dL Ur Blood (Man) (Negative) Urine Nitrate (Negative) Urine Bilirubin (Negative) Urine Urobilinogen (<2.0) mg/dL Leukocyte Esterase Rfl (Negative) RADAMES/UL Urine RBC (0-2) /hpf Urine WBC (0-3) /hpf Ur Squamous Epith Cells (Few) /hpf Urine Bacteria /hpf Urine Casts POC Urine HCG, Qual Negative (Negative) Urine Opiates Screen (Negative) Urine Methadone Screen (Negative) Ur Barbiturates Screen (Negative) Ur Phencyclidine Scrn (Negative) Ur Amphetamine Screen (Negative) U Benzodiazepines Scrn (Negative) Urine Cocaine Screen (Negative) U Cannabinoids Screen (Negative) 04/01/25 Range/Units 23:17 WBC (4.5-10.0) K/mm3 RBC (4.2-5.4) M/mm3 Hgb (12.0-15.0) g/dL Hct (37.0-47.0) % MCV (80-100) fl MCH (26-34) pg MCHC (32-36) g/dl RDW (11.5-14.5) % Plt Count (150-375) k/mm3 MPV (7.4-10.4) fl Immature Gran % (Auto) (0-0.5) % Neut % (Auto) (45.5-73.1) % Lymph % (Auto) (18.3-44.2) % [place] % (Auto) (2.6-8.5) % Eos % (Auto) (0-4.4) % Baso % (Auto) (0.2-1.2) % Lymph # (Auto) (0.9-3.2) K/mm3 [place] # (Auto) (0.1-0.6) K/mm3 Eos # (Auto) (0-0.3) K/mm3 Baso # (Auto) (0.0-0.1) K/mm3 Abs Immat Gran (auto) (0.00-0.031) K/mm3 Absolute Neuts (auto) (1.3-6.7) K/mm3 Absolute Nucleated RBC (0.0-0.012) K/mm3 Nucleated RBC % (0.0-0.2) % Sodium (137-145) mmol/L Potassium (3.4-5.0) mmol/L Chloride (98-107) mmol/L Carbon Dioxide (22-30) mmol/L Anion Gap (4-12) mmol/L BUN (7-17) mg/dL Creatinine (0.7-1.0) mg/dL Estim Creat Clear Calc ml/min Estimated GFR (59 - ) Glucose (65-110) mg/dL Lactic Acid (0.7-2.0) mmol/L Calcium (8.4-10.2) mg/dL Total Bilirubin (0.2-1.3) mg/dL AST (14-36) U/L ALT (6-35) U/L Alkaline Phosphatase (38-126) U/L Total Protein (6.3-8.2) g/dL Albumin (3.5-5.1) g/dL Lipase (23-300) U/L Urine Color Yellow (Yellow) Urine Appearance Clear (Clear) Urine pH 6.0 (5.0-9.0) Ur Specific [place] 1.009 (1.001-1.035) Urine Protein Trace (Negative) mg/dL Urine Glucose (UA) Negative (Negative) mg/dL Urine Ketones 2+ H (Negative) mg/dL Ur Blood (Man) 2+ H (Negative) Urine Nitrate Negative (Negative) Urine Bilirubin Negative (Negative) Urine Urobilinogen 0.2 (<2.0) mg/dL Leukocyte Esterase Rfl Negative (Negative) RADAMES/UL Urine RBC 0-2 (0-2) /hpf Urine WBC 0-5 (0-3) /hpf Ur Squamous Epith Cells Few (Few) /hpf Urine Bacteria 3+ H /hpf Urine Casts 0-2 POC Urine HCG, Qual (Negative) Urine Opiates Screen Negative (Negative) Urine Methadone Screen Negative (Negative) Ur Barbiturates Screen Negative (Negative) Ur Phencyclidine Scrn Negative (Negative) Ur Amphetamine Screen Negative (Negative) U Benzodiazepines Scrn Negative (Negative) Urine Cocaine Screen Negative (Negative) U Cannabinoids Screen Negative (Negative) <Brown Gallo MD - Last Filed: 04/02/25 09:13> Imaging Data Attestation: I personally reviewed and interpreted this imaging study as follows: < Rosina Wang APRN - Last Filed: 04/02/25 01:29> Radiologist's impression: Patient's CT scan indicates no acute abnormalities. <Rosina Wang APRN - Last Filed: 04/02/25 01:29> Discharge Plan Discharge Clinical Impression: Drug-induced nausea and vomiting, Gastroenteritis, Dehydration <Tia Urbina AUDIO VISUAL DESIGN ENGINEER - Last Filed: 04/01/25 18:39> Patient Disposition: Left Against Medical Advice <Tia Urbina AUDIO VISUAL DESIGN ENGINEER - Last Filed: 04/01/25 18:39> Condition: Guarded Prognosis <Tia Urbina AUDIO VISUAL DESIGN ENGINEER - Last Filed: 04/01/25 18:39> Patient Language: Czech <Tia UrbinaSepN - Last Filed: 04/01/25 18:39> Follow-up/Referrals: PHYSICIAN NOT ON STAFF,NONSTAFF [Primary Care Provider] <Tia Urbina, AUDIO VISUAL DESIGN ENGINEER - Last Filed: 04/01/25 18:39>
--- NOTE | 2025-04-01 19:34 | ECG_ITS ---
Test Date: 2025-04-01 19:39:46 Measurements Intervals [place] Rate: 131 P: 78 IA: 157 QRS: 94 QRSD: 81 T: 71 QT: 310 QTc: 459 Interpretive Statements SINUS TACHYCARDIA RIGHT AXIS DEVIATION INCOMPLETE RIGHT BUNDLE BRANCH BLOCK ABNORMAL ECG No previous ECG available for comparison Electronically Signed On 04-02-2025 06:17:45 CDT by Niles Orellana D.O.
[2025-04-01 19:48] LABS: Hematocrit 40.6 % (37.0-47.0); Hemoglobin 13.9 g/dL (12.0-15.0); Immature Granulocyte Percent A 0.3 % (0-0.5); Lymphocytes Absolute Auto 1.50 K/mm3 (0.9-3.2); Mean Corpuscular HGB Conc 34.2 g/dl (32-36); Mean Corpuscular Hemoglobin 32.1 pg (26-34); Mean Corpuscular Volume 93.8 fl (80-100); Nucleated Red Blood Cells Absolute Auto 0.000 K/mm3 (0.0-0.012); Nucleated Red Blood Cells Perc 0.0 % (0.0-0.2); Platelet Count Result 344 k/mm3 (150-375); Red Blood Count 4.33 M/mm3 (4.2-5.4); White Blood Count 13.2 K/mm3 (4.5-10.0)
[2025-04-01 19:59] LABS: Alanine Aminotransferase 27 U/L (6-35); Albumin Level 5.0 g/dL (3.5-5.1); Alkaline Phosphatase 69 U/L (38-126); Anion Gap 14 mmol/L (4-12); Aspartate Amino Transferase 41 U/L (14-36); Bilirubin,Total 1.0 mg/dL (0.2-1.3); Blood Urea Nitrogen 6 mg/dL (7-17); Calcium 9.7 mg/dL (8.4-10.2); Carbon Dioxide 22 mmol/L (22-30); Chloride 95 mmol/L (98-107); Estimated CRCL calculation 58 ml/min; Estimated Glomerular Filt Rate > 60; Glucose 102 mg/dL (65-110); Lipase 132 U/L (23-300); Potassium 3.6 mmol/L (3.4-5.0); Sodium 131 mmol/L (137-145); Total Protein 8.6 g/dL (6.3-8.2)
[2025-04-01] MEDS: ONDANSETRON INJ 4 MG/2 ML VIAL IV PUSH (20:32)
[2025-04-01] MEDS: SODIUM CHLORIDE 0.9% IV 1,000 ML 999 ML IV CONT ×3 (20:32→23:12)
--- OUTSIDE RECORDS SUMMARY | 2025-04-01 20:51 | XMS_ITS | Encounter Summary ---
Author Organization [facility] Address [facility] [place] [address] Care Team Providers Care Data Control Clerk Supervisor Name Role Phone Abbie Sauceda RIDING DOUBLE Primary Care Provider [phone] Encounter Details Date Type Department Care Team (Late st Contact Info) Description 04/01/2025 MyChart Message Enc [facility] [place] [address] [place], [place] [phone] Abbie Sauceda NP [address] [place], [place] [id number] Metoprolol RX Social History Tobacco Use Types Packs/Day Years [...] on file documented as of this encounter Plan of Treatment Upcoming Encounters Date Type Department Care Team (Latest Contact Info) Description 04/21/2025 9:00 AM CDT Office Visit [facility] - [address], [address] [place] [address] Amirah Martinez NP [address] [facility] [address] [place] [address] 05/12/2025 9:00 AM ADMINISTRATIVE RECEPTIONIST Office Visit [facility] - [place] [address] [place] [address] Abbie Sauceda NP [address] [facility] [place] [facility] [address] [place] [address] 11/09/2025 8:20 AM CDT Hospital Encounter [facility] Surgical Services [address] [place] [address] Osvaldo Story MD [address] [facility] [address] [place] [address] 11/09/2025 8:20 AM CDT - 11/09/2025 8:53 AM CDT Surgery [facility] Surgical Services [address] [place] [address] Osvaldo Story MD [address] [facility] [address] [place] [address] COLONOSCOPY SCREENING Scheduled Procedures Name Priority Associated Diagnoses Date/Ti me COLONOSCOPY SCREENING Encounter for screening colonoscopy 11/09/2025 8:20 AM CDT documented as of this encounter Visit Diagnoses Not on filedocumented in this encounter Additional Health Concerns Assessment Noted Time PHQ-9 Depression Total Score: 4 03/31/20 9:58 AM CDT documented as of this encounter Care Teams Data Control Clerk Supervisor Relationship Specialty Start Date End Date Abbie Sauceda NP [address] [place] [address] PCP - General NURSE PRACTITIONER 10/07/24 documented as of this encounter
--- OUTSIDE RECORDS SUMMARY | 2025-04-01 20:51 | XMS_ITS | Encounter Summary ---
Author Organization [facility] Address [address] [place] [address] Care Team Providers Care Quantitative Manager Name Role Phone Abbie Sauceda NP Primary Care Provider [phone] Encounter Details Date Type Department Care Team (Latest Contact Info) Description 03/25/2025 IRIS.TV Message Enc [address], [address] [place] [phone] Jose Guadalupe, [facility] Provider colonoscopy instructions Social History Tobacco Use Types Packs/Day Years Used Date Smoking Tobacco: Former Cigarettes 0.5 10 Q uit: 05/04/2012 Passive Smoke Exposure: Past Smokeless Tobacco: Former Alcohol Use Standard Drinks/Week Comments Yes 23.3 (1 standard drink = 0.6 oz pure alcohol) 2 beers daily PHQ-2 Answer Date Recorded Patient Health Questionnaire-2 Score 0 12/16/2024 Comments No Sex and Gender Information Value Date Recorded Sex Assigned at Female 11/05/2024 7:22 AM CDT Legal Sex Female 10:54 AM CDT Gender Identity Female 11/24/2024 9:36 AM CDT Sexual Orientation Not on file documented as of this encounter Plan of Treatment Upcoming Encounters Date Type Department Care Team (Latest Contact Info) Description 04/21/2025 9:00 AM CDT Office Visit [address], [address] [place] [phone] Amirah Martinez NP [address] [place] [address] [address] [place] [address] 05/12/2025 9:00 AM CASH REGISTER SERVICER Office Visit [facility] [place] [address] [place] [address] Abbie Sauceda NP [address] [place] [address] 11/09/2025 8:20 AM CDT Hospital Encounter [facility] Surgical Services [address] [place] [address] Osvaldo Story MD [address] [address] 11/09/2025 8:20 AM CDT - 11/09/2025 8:53 AM CDT Surgery [facility] [address] [place] [address] Osvaldo Story MD [address] [address] COLONOSCOPY SCREENING Scheduled Procedures Name Priority Associated Diagnoses Date/Ti me COLONOSCOPY SCREENING Encounter for screening colonoscopy 11/09/2025 8:20 AM CDT documented as of this encounter Visit Diagnoses Not on filedocumented in this encounter Additional Health Concerns Assessment Noted Time PHQ-9 Depression Total Score: 0 12/17/19 10:03 AM CDT documented as of this encounter Care Teams Quantitative Manager Relationship Specialty Start Date End Date Abbie Sauceda NP [address] [place] [address] PCP - General NURSE PRACTITIONER 10/07/24 documented as of this encounter
--- OUTSIDE RECORDS SUMMARY | 2025-04-01 20:51 | XMS_ITS | Encounter Summary ---
Author Organization [facility] Address [address] [place] [address] Care Team Providers Care Mule Rider Name Role Phone Abbie Sauceda FILM REPRODUCER Primary Care Provider [phone] Encounter Details Date Type Department Care Team (Latest Contact Info) Description 03/07/2025 MyChart Message Enc [address], [address] [place] [phone] Amirah Martinez NP [address] [facility] [address] [place], [place] [phone] New medicine worked ! Social History Tobacco Use Types Packs/Day Years Used Date Smoking Tobacco: Former Cigarettes 0.5 10 Q uit: 05/04/2012 Passive Smoke Exposure: Past Smokeless Tobacco: Former Alcohol Use Standard Drinks/Week Comments Yes 6.7 (1 standard drink = 0.6 oz p ure alcohol) social PHQ-2 Answer Date Recorded Patient Health Questionnaire-2 [...] Description 04/21/2025 9:00 AM CDT Office Visit [address] [place] [phone] Amirah Martinez NP 3 [facility] [address] [place] [address] 05/12/2025 9:00 AM SUPERVISOR HARDBOARD Office Visit [facility] Mult[facility]pec[facility]ty Care - [place] [address] [place] [address] Abbie Sauceda NP [address] [facility] [address] [place] [address] 11/09/2025 8:20 AM CDT Hospital Encounter [facility] Surgical Services [address] [place] [address] Osvaldo Story MD [address] [address] 11/09/2025 8:20 AM CDT - 11/09/2025 8:53 AM CDT Surgery [facility] Surgical Services [address] [place] [address] Osvaldo Story MD [address] [address] COLONOSCOPY SCREENING Scheduled Procedures Name Priority Associated Diagnoses Date/Ti me COLONOSCOPY SCREENING Encounter for screening colonoscopy 11/09/2025 8:20 AM CDT documented as of this encounter Visit Diagnoses Not on filedocumented in this encounter Additional Health Concerns Assessment Noted Time PHQ-9 Depression Total Score: 0 12/17/19 10:03 AM CDT documented as of this encounter Care Teams Mule Rider Relationship Specialty Start Date End Date Abbie Sauceda, FILM REPRODUCER [address] [place] [address] PCP - General NURSE PRACTITIONER 10/07/24 documented as of this encounter
--- OUTSIDE RECORDS SUMMARY | 2025-04-01 20:51 | XMS_ITS | Encounter Summary ---
Author Organization [facility] Address [address] [place] [address] Care Team Providers Care Latent Fingerprint Examiner Name Role Phone Abbie Sauceda NP Primary Care Provider [phone] Encounter Details Date Type Department Care Team (Latest Contact Info) Description 03/31/2025 Travel Social History Tobacco Use Types Packs/Day Years [...] on file documented as of this encounter Functional Status * Over the [...] Not at all 03/31/2025 9:58 AM CDT Fzoia Iniguez LPN Active Trouble concentrating on things, [...] 3 03/31/2025 10:01 AM CDT Fozia Iniguez DIRECTOR OF FINANCIAL REPORTING Active Being so restless that it is hard to sit still 3 03/31/2025 10:01 AM CDT Fozia Iniguez DIRECTOR OF FINANCIAL REPORTING Acti ve Becoming easily annoyed or irritable 1 03/31/2025 10:01 AM CDT José Luis Inigueza, DIRECTOR OF FINANCIAL REPORTING Active Feeling afraid as if something awful might happen 3 03/31/2025 10:01 AM CDT José Luis Iniguez a DIRECTOR OF FINANCIAL REPORTING Active NIKOLAS-7 Total Score 17 03/31/2025 10:01 AM CDT McOli mendoza Fozia, DIRECTOR OF FINANCIAL REPORTING Active documented as of this encounter Plan of Treatment Upcoming Encounters Date Type Department Care Team (Latest Contact Info) Description 04/21/2025 9:00 AM CDT [facility] [address] [facility], [address] [place] [address] Amirah Martinez NP 3 [facility] [address] [place] [address] 05/12/2025 9:00 AM AMMONIA REFRIGERATION WORKER [facility] [address] [place] [address] Abbie Sauceda NP [address] [place] [address] 11/09/2025 8:20 AM CDT Hospital Encounter [facility] Surgical Services [address] [place] [address] Osvaldo Story MD [address] [facility] [address] [place] [address] 11/09/2025 8:20 AM CDT - 11/09/2025 8:53 AM CDT Surgery [facility] Surgical Services [address] [place] [address] Osvaldo Story MD [address] [place] [address] [address] [place] [address] COLONOSCOPY SCREENING Scheduled Procedures Name Priority Associated Diagnoses Date/Ti me COLONOSCOPY SCREENING Encounter for screening colonoscopy 11/09/2025 8:20 AM CDT documented as of this encounter Visit Diagnoses Not on filedocumented in this encounter Additional Health Concerns Assessment Noted Time PHQ-9 Depression Total Score: 4 03/31/20 9:58 AM CDT documented as of this encounter Care Teams Latent Fingerprint Examiner Relationship Specialty Start Date End Date Abbie Sauceda, OVERHEAD WORKER [address] [place] [address] PCP - General NURSE PRACTITIONER 10/07/24 documented as of this encounter
--- OUTSIDE RECORDS SUMMARY | 2025-04-01 20:51 | XMS_ITS | Encounter Summary ---
Author Organization [facility] Address [address] [place] [address] Care Team Providers Care Rotary Cutter Feeder Name Role Phone Komal, Abbie Jose BOX Primary Care Provider [phone] Encounter Details Date Type Department Care Team (Latest Contact Info) Description 12/29/2024 MyChart Message Enc [address], [address] [place] [phone] Patrice Dallas PA-C 3 [facility] [address] [place] [address] Cholestyramine Question Social History Tobacco Use Types Packs/Day Years [...] Description 04/21/2025 9:00 AM CDT Office Visit [address] [place] [address] Amirah Martinez NP 3 [facility] [address] [place] [address] 05/12/2025 9:00 AM IT SECURITY ANALYST Office Visit [facility] Mult[facility] [place] [address] [place] [address] Abbie Sauceda NP [address] [place] [address] 11/09/2025 8:20 AM CDT Hospital Encounter [facility] Surgical Services [address] [place] [address] Osvaldo Story MD 3 [facility] [address] [place] [address] 11/09/2025 8:20 AM CDT - 11/09/2025 8:53 AM CDT Surgery [facility] Surgical Services [address] [place] [address] Osvaldo Story MD [address] [address] COLONOSCOPY SCREENING Scheduled Procedures Name Priority Associated Diagnoses Date/Ti me COLONOSCOPY SCREENING Encounter for screening colonoscopy 11/09/2025 8:20 AM CDT documented as of this encounter Visit Diagnoses Not on filedocumented in this encounter Additional Health Concerns Assessment Noted Time PHQ-9 Depression Total Score: 0 12/17/19 25 10:03 AM CDT documented as of this encounter Care Teams Rotary Cutter Feeder Relationship Specialty Start Date End Date Abbie Sauceda, PHYSICIAN GYNECOLOGIST [address] [place] [address] PCP - General NURSE PRACTITIONER 10/07/24 documented as of this encounter
--- OUTSIDE RECORDS SUMMARY | 2025-04-01 20:51 | XMS_ITS | Clinical Summary ---
Author Organization [facility] Address [facility] [place] [address] Care Team Providers Care Issuer Name Role Phone Abbie Sauceda NP Primary Care Provider [phone] Allergies No known active allergies Medications ondansetron (ZOFRAN-ODT) 4 MG disintegrating tabletIndications :Nausea and vomiting, unspecified vomiting type Take 1 tablet (4 mg total) by mouth every 8 (eight) hours as needed for Nausea. 30 tablet 025 Active amitriptyline (ELAVIL) 50 MG tabletIndications :Generalized anxiety disorder,Atypical migraine Take 1 tablet (50 mg total) by mouth nightly at bedtime. 90 tablet 1 025 Active SUMAtriptan (IMITREX) 50 MG tabletIndications :Atypical migraine Take 1 tablet (50 mg total) by mouth 2 (two) times daily as needed for Migraine. Max of 4 tablets (200 mg) in 24 hours. 30 tablet 11 2025 Active cholestyramine (QUESTRAN) 4 G packetIndications :Nausea and vomiting, unspecified vomiting type,Pain of upper abdomen,Duodenoga stric reflux,History of gastritis MIX AND DRINK 1 PACKET(4 GRAMS) BY MOUTH TWICE DAILY WITH MEALS 180 each 2 Active pantoprazole EC (PROTONIX) 40 MG tabletIndications :Nausea and vomiting, unspecified vomiting type,Pain of upper abdomen,Duodenoga stric reflux,History of gastritis TAKE 1 TABLET(40 MG) BY MOUTH DAILY 90 tablet 2 025 Active Na sulfate-K sulfate-Mg sulfate (SUPREP BOWEL PREP) 17.5-3.13-1.6 GM/177ML SolutionIndicatio ns:Screening for colon cancer Take 177 mLs by mouth every 12 (twelve) hours. See GI instructions sent via [place] 354 mL Active ubrogepant (UBRELVY) 100 MG tabletIndications :Migraine with aura and without status migrainosus, not intractable Take 1 tablet (100 mg total) by mouth daily as needed for Migraine. May repeat dose in 2 hours. Max of 2 tablets (200 mg) in 24 hours 10 tablet 1 Active LORazepam (ATIVAN) 1 MG tabletIndications :Anxiety Take 1 tablet (1 mg total) by mouth daily as needed. 30 tablet Active olmesartan (BENICAR) 20 MG tabletIndications :Benign essential hypertension Take 1 tablet (20 mg total) by mouth daily. 30 tablet 2 Active metoprolol succinate ER (TOPROL-XL) 100 MG 24 hr tabletIndications :Primary hypertension Take 1 tablet (100 mg total) by mouth daily. 30 tablet Active pantoprazole EC (PROTONIX) 40 MG tabletIndications :Nausea and vomiting, unspecified vomiting type,Pain of upper abdomen,Duodenoga stric reflux,History of gastritis Take 1 tablet (40 mg total) by mouth daily. 90 tablet 1 025 2024 Discontinued cholestyramine (QUESTRAN) 4 G packetIndications :Nausea and vomiting, unspecified vomiting type,Pain of upper abdomen,Duodenoga stric reflux,History of gastritis Take 1 packet (4 g total) by mouth 2 (two) times daily with meals. 180 each 1 025 2024 Discontinued LORazepam (ATIVAN) 1 MG tabletIndications :Anxiety Take 1 tablet (1 mg total) by mouth daily as needed. 30 tablet 025 2024 Discontinued(R eorder) metoprolol succinate ER (TOPROL-XL) 100 MG 24 hr tabletIndications :Primary hypertension Take 1 tablet (100 mg total) by mouth daily. 30 tablet 025 2024 Discontinued(R eorder) SUMAtriptan (IMITREX) 50 MG tabletIndications :Atypical migraine Take 1 tablet (50 mg total) by mouth 2 (two) times daily as needed for Migraine. Max of 4 tablets (200 mg) in 24 hours. 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 Past health care providers attributed the cause to stress, but I as the patient disagree. Possibly the cause could be abdominal migraines Resolved Problems Problem Noted Date Diagnosed Date Resolved Date Encounter for screening colonoscopy 03/25/2025 03/29/2025 Encounters Date Type Department Care Team Description 04/01/2025 MyCCOPsynct Message Enc [facility] - [place] [address] [place] [address] Abbie Sauceda NP Metoprolol RX 03/31/2025 9:40 AM CDT [facility] [place] [address] [place] [address] Abbie Sauceda NP Annual (Patient is here for annual exam. 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 Will have a procedure April 12 to have it removed. ) 03/31/2025 Travel 03/25/2025 MyChart Message Enc [facility] - [address], [address] [place] [address] Jose Guadalupe [facility] Provider colonoscopy instructions 03/25/2025 Orders Only [facility] [address] [place] [phone] Cheri Story MD 03/25/2025 Orders Only [facility] [address] [place] [address] Cheri Story MD 03/25/2025 Results Follow-Up [facility] [address] [place] [address] Cheri Story MD Pathology 03/23/2025 11:00 AM CDT - 03/23/2025 11:25 AM CDT Surgery [facility] [address] [place] [address] Cheri Story MD Upper Endoscopy with biopsies 03/23/2025 10:40 AM CDT Anesthesia Event [facility] [address] [place] [address] Eric Muñoz CRNA 03/23/2025 8:41 AM CDT - 03/23/2025 11:43 AM CDT Hospital Encounter [facility] [address] [place] [address] Cheri Story MD Discharge Disposition: Home or Self Care (Routine Discharge) 03/23/2025 Orders [facility] - [address] [place] [address] Cehri Story MD 03/23/2025 Travel 03/07/2025 MyChart Message Enc [facility] [address] [place] [address] Amirah Martinez NP New medicine worked ! 02/25/2025 9:40 AM CDT Office Visit [facility] [address], [address] [place] [phone] Amirah Martinez NP Headache (Patient is being seen for potential abdominal migraines. PCP ordered HIDA scan that showed that showed abnormalities. Reports she is not getting any actual migraines but having abdominal pain.) 02/25/2025 Travel 02/15/2025 8:40 AM CDT Office Visit [facility] [address] [place] [phone] Patrice Dallas PA-C Nausea 02/15/2025 Travel 02/04/2025 Telephone [facility] [address] [place] [phone] Cheri Story MD Prior Authorization ([id number]) 01/25/2025 4:00 PM CDT Office Visit [facility] - [address] [place] [address] Abbie Sauceda NP Gastritis; Acid Reflux; Anxiety 01/25/2025 Travel from Last 3 Months Immunizations Immunization Administration Dates Next Due Fluzone (IIV3, Trivalent, 0. 5 ML Prefilled Syringe) 03/31/2025 Influenza (Generic) 03/29/2024 Influenza Adult (Generic) 03/11/2023,03/25/2022, 04/22/2019 PFIZER COVID-19 BIVALENT (12 +) mRNA, LNP-S, PF, 30 MCG/0.3 ML DOSE 03/25/2022 Tdap (Generic) 08/20/2024 Family History Medical History Relation Comments Heart Attack Father Diabetes Maternal Grandfather Anxiety Mother Depression Mother Hypertension Mother Fiber myalgia, d epression, brain anyeresum, migraines Diabetes Paternal Grandfather Heart Attack Paternal Grandfather Relation Status Comments Father Maternal Grandfather Mother Paternal Grandfather Social History Tobacco Use Types Packs/Day Years Used Date Smoking Tobacco: Former Cigarettes 0.5 10 Q uit: 05/04/2012 Passive Smoke Exposure: Past Smokeless Tobacco: Former Tobacco Cessation:Counseling Given: Yes Alcohol Use Standard Drinks/Week Comments Yes 23.3 (1 standard drink = 0.6 oz pure alcohol) 2 beers daily PHQ-2 Answer Date Recorded Patient Health Questionnaire-2 Score 0 03/31/2025 Comments No Sex and Gender Information Value Date Recorded Sex Assigned at Female 11/05/2024 7:22 AM CDT Legal Sex Female 10:54 AM CDT Gender Identity Female 11/24/2024 9:36 AM CDT Sexual Orientation Not on file Last Filed Vital Signs Vital Sign Reading [...] Mass Index 18.25 03/31/2025 10:02 AM CDT Plan of Treatment Upcoming Encounters Date Type Department Care Team (Latest Contact Info) Description 04/21/2025 9:00 AM CDT [facility] [address], [address] [place] [phone] Amirah Martinez NP [address] [facility] [address] [place] [address] 05/12/2025 9:00 AM HEAD OF SALES AND MARKETING [facility] - [address] [place] [address] Komal Abbie Jose, ONCOLOGY ACCOUNT SPECIALIST [address] [place] [address] 11/09/2025 8:20 AM CDT Hospital Encounter [facility] [address] [place] [address] Cheri Story MD [address] [facility] [address] [place] [address] 11/09/2025 8:20 AM CDT - 11/09/2025 8:53 AM CDT Surgery [facility] [address] [place] [address] Cheri Story MD [address] [facility] [address] [place] [address] COLONOSCOPY SCREENING Scheduled Procedures Name Priority Associated Diagnoses Date/Ti me COLONOSCOPY SCREENING Encounter for screening colonoscopy 11/09/2025 8:20 AM CDT Health Maintenance Due Date Last Done Comments Cervical Cancer Screening Pap Smear (Age 30 to 64) Every 3 Years 1980 Hepatitis B Vaccines (1 of 3 - 19+ 3-dose series) 11/07/1999 HPV Vaccines (1 - 3-dose SCDM series) 11/07/2007 Cervical Cancer Screening Pap with HPV Testing (Age 30 to 64) Every 5 Years 2010 Cervical Cancer Screening with HPV 2010 Annual Physical 03/31/2026 03/31/2025 Mammogram Screening 12/02/2026 12/02/2024 DTaP, Tdap and Td Vaccines (2 - Td or Tdap) 08/20/2034 08/20/2024 COVID-19 Vaccine Completed 03/29/2024, , 03/25/2022, Additional history exists Hepatitis C Completed 2024, 08/20/2024 Influenza Adult Completed 03/31/2025, 1011/2023, 03/11/2023, Additional history exists PHQ-2 (Physician [place]) Completed 03/31/2025 Meningococcal B Vaccine Aged Out No l onger eligible based on patient's age to complete this topic Meningococcal Vaccine Aged Out No meir bren eligible based on patient's age to complete this topic Pneumococcal Vaccine: Pediatrics (0 to 5 Years) and At-Risk Patients (6 to 49 Years) Aged Out No longer eligible based on patient's age to complete this topic RSV Immunizations Under 20 Months Aged Out No longer eligible based on patient's age to complete this topic Procedures Procedure Name Priority Date/Time Associated Diagnosis Comments UPPER GI ENDOSCOPY,DIAGNOS IS 03/23/2025 10:35 AM CDT Nausea and vomiting, unspecified vomiting type Pain of upper abdomen Duodenogastric reflux History of gastritis Special Needs Cleared by anesthesia ECG 12-LEAD Routine 03/23/2025 8:58 AM CDT TEST URINE Routine 03/23/2025 8:52 AM CDT PATHOLOGY Routine 03/23/2025 12:00 AM CDT MG SCREENING W JASS YOBANI DIGI Routine 12/02/2024 7:32 AM CDT Encounter for screening mammogram for malignant neoplasm of breast HEPATITIS C ANTIBODY Routine 2024 8:36 AM CDT Need for hepatitis C screening test from Last 3 Months or Most Recently Relevant to Health Maintenance Results * ECG 12 lead (03/23/2025 8:58 AM CDT) 03/23/2025 8:58 AM CDT Narrative [facility] - 03/23/2025 9:50 AM CDT HFG Test Date: 2025-03-23 Pat Name: MELINDA GONZALEZ Department: 100 Room: [facility] Gender: Female 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1980 Requested By: ERIC MUÑOZ Order Number: [id number] Renée MD: Quinn Carranza Measurements Intervals [place] Rate: 77 P: 75 CA: 153 QRS: 87 QRSD: 92 T: 76 QT: 375 QTc: 425 Interpretive Statements SINUS RHYTHM Procedure Note Quinn Carranza MD - 03/23/2025 HFG Test Date: 2025-03-23 Pat Name: MELINDA GONZALEZ Department: 100 Room: [facility] Gender: Female 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1980 Requested By: ERIC MUÑOZ Order Number: [id number] Reading MD: Quinn Carranza Measurements Intervals [place] Rate: 77 P: 75 CA: 153 QRS: 87 QRSD: 92 T: 76 QT: 375 QTc: 425 Interpretive Statements SINUS RHYTHM Eric Muñoz EXTRUSION MANAGER ECG ORDERABLES Final Res ult Performing Organization Address [facility] [place] [address] * TEST URINE (03/23/2025 8:52 AM CDT) URINE HCG TEST NEGATIVE NEGATIVE 03/23/2025 9:02 AM CDT [facility] Comment: VERY DILUTE URINE SPECIMENS MAY NOT CONTAIN VENDETTE LEVELS OF HCG. IF IS STILL SUSPECTED, A SERUM HCG TEST IS RECOMMENDED. URINE SPECIMEN FROM URETHRA / Unknown 03/23/2025 8:52 AM CDT Eric Muñoz EXTRUSION MANAGER URINE ORDERABLES Final Re sult Performing Organization Address City/[facility]/[place] [address], * Pathology (03/23/2025 12:00 AM CDT) PATHOLOGY [facility] Department of Laboratory Medicine [address] [place] [address] , extension [phone] Pathology Report Surgical Pathology Report Name: MELINDA GONZALEZ Specimen #: [id number] Age: 5 1980 (Age: 44) Location: [facility] Sex: F Procedure Date: 03/23/2025 Hospital #: [id number] Date Received: 03/24/2025 Date Reported: 03/25/2025 Provider: CHERI STORY MD Source: Duodenum, biopsies Clinical History: Nausea and vomiting, unspecified vomiting type. Anaerobe gastric reflux with history of gastritis. Upper abdominal pain. Duodenal gastric reflux. FINAL DIAGNOSIS: Duodenum, duodenal lesion, biopsy: - Tubular adenoma. Gross Description: Received in formalin, labeled with a patient label and as biopsies of duodenal lesion, are 2 barney soft tissue fragments that measure 0.2 and 0.3 cm. The specimen is entirely submitted in cassette 1. Gross examination (when applicable), interpretation, and sign out were performed at [facility], [address] [place] [address]. Electronically Signed Out RAMBO GUZMAN MD [facility] TISSUE DUODENAL STRUCTURE / Unknown 03/23/2025 10:51 AM CDT Comment:Rule out Lichen Plan us us Cheri Story MD PATHOLOGY/CYTOLOGY ORDERABLES Fi nal Result [facility] [address] [place] [address], [id number] * MG SCREENING W JASS YOBANI DIGI (12/02/2024 7:32 AM CDT) Anatomical Region Laterality Modality Breast Bilateral Mammography 12/02/2024 9:05 AM CDT Impressions 12/02/2024 9:09 AM CDT IMPRESSION: No suspicious mammographic findings. Recommendation: 1. Routine Screening, Bilateral Assessment: ACR BI-RADS 2 - BENIGN FINDING(S) Ordered By: ABBIE SAUCEDA Interpreted By: Nikita Cortes MD, 12/02/2024 9:05 AM Narrative 12/02/2024 9:09 AM CDT [facility] [address] [place] [address] Examination: Screening bilateral mammogram Exam Date: 12/02/2024 7:20 AM Clinical history: Routine screening. Comparison: 09/16/2012 Technique: Digital screening mammography of both breasts was performed. Breast tomosynthesis acquisitions were obtained and reviewed. This study was read with the assistance of a computer-aided detection system. Tissue density: The breasts are heterogeneously dense, which may obscure small masses. Findings: No suspicious masses, malignant appearing calcifications, skin thickening or other abnormalities are present. Few benign-appearing calcifications are noted. No significant change from the prior exam. us Abbie Sauceda NP MAMMO Final Resul t * HEPATITIS C ANTIBODY (2024 8:36 AM CDT) HEPATITIS C AB NON-REACTI VE NON-REACT TIFFANIE 2024 7:12 PM CDT [facility] Comment: ANTIBODIES TO HCV NOT DETECTED. DOES NOT EXCLUDE THE POSSIBILITY OF EXPOSURE TO HCV. 2024 8:36 AM CDT Abbie Sauceda NP LABORATORY Final Resul t [facility] [address] [place] [address], [id number] from Last 3 Months or Most Recently Relevant to Health Maintenance Insurance [facility] Care Teams Issuer Relationship Specialty Start Date End Date Abbie Sauceda, ISAURO [address] [facility] [address] [place] [address] PCP - General NURSE PRACTITIONER 10/07/24
--- OUTSIDE RECORDS SUMMARY | 2025-04-01 20:52 | XMS_ITS | Clinical Summary ---
Author Organization [facility] Address [address] [place] [address] Care Team Providers Care Jack Setter Name Role Phone Unavailable Primary Care Provider Unavailabl e Source Comments [facility],non-owned Affiliates and Associated Physician Practices is amultiple site organization consisting of ambulatory clinics and hospital sitesin [place], [place], [place] and [place]. This disclosure is being madepursuant to the Care Everywhere program and may not contain all information available regarding this patient. Last updated 18.[facility] Encounters Date Type Department Care Team Description 03/26/2025 Telephone [facility] [address] [place] [address] Krystal Culver Procedure (External Referral, Eus, Dr. Story ) from Last 3 Months Social History Tobacco Use Types Packs/Day Years Used Date Smoking Tobacco: Never Assessed Comments Unknown Sex and Gender Information Value Date Recorded Sex Assigned at Female 03/23/2025 11:13 AM CDT Legal Sex Female 11:13 AM CDT Gender Identity Female 03/23/2025 11:13 AM CDT Sexual Orientation Not on file Plan of Treatment Upcoming Encounters Date Type Department Care Team (Latest Contact Info) Description 04/12/2025 10:00 AM CDT Hospital Encounter [facility] [address] [place] [address] Tristan Haywood MD [address] [place] [address] Surgery General 04/12/2025 10:00 AM CDT - 04/12/2025 11:00 AM CDT Surgery [facility] [address] [place] [address] Tristan Haywood MD [address] [place] [phone] ESOPHAGOGASTRODUODENOSCOPY (EGD) /ESOPHAGOSCOPY WITH ULTRASOUND (EUS) Scheduled Procedures Name Priority Associated Diagnoses Date/Ti me ESOPHAGOGASTRODUODENOSCOPY ( EGD) /ESOPHAGOSCOPY WITH ULTRASOUND (EUS) Gastric mass 04/12/2025 10:00 AM CDT Health Maintenance Due Date Last Done Comments LIPID TESTING 1980 HIV SCREENING 11/07/1995 DTAP/TDAP/TD VACCINES (1 - Tdap) 11/07/1999 HEPATITIS B VACCINE (1 of 3 - 19+ 3-dose series) 11/07/1999 PAP SMEAR 2001 HPV VACCINE (1 - 3-dose SCDM series) 11/07/2007 DEPRESSION SCREENING 06/24/2024 COVID-19 VACCINE (2 - season) 2025 03/25/2022 INFLUENZA VACCINE (#1) 2025 , 03/11/2023, 03/25/2022, Additional history exists MAMMOGRAM 12/02/2026 12/02/2024, 12/02/2024 ZOSTER VACCINE (1 of 2) 2030 HEPATITIS C SCREENING Completed 2024 HIB VACCINE Aged Out No longer eligi ble based on patient's age to complete this topic MENINGOCOCCAL (Group B) VACCINE SHARED DECISION-MAKING Aged Out No longer eligible based on patient's age to complete this topic MENINGOCOCCAL GROUPS A/C/Y/W VACCINE Aged Out No longer eligible based on patient's age to complete this topic PNEUMOCOCCAL VACCINE Aged Out No long er eligible based on patient's age to complete this topic Insurance [facility]
[2025-04-01] MEDS: MORPHINE SULFATE (*CRX) 4 MG/ML INJ IV PUSH (21:34)
[2025-04-01 21:38] LABS: BEDSIDEPREGUCG Negative (Negative)
[2025-04-01] MEDS: HALOPERIDOL LACTATE 5 MG/ML VIAL IM (23:13)
[2025-04-01] MEDS: BELLADONNA ALK/PHENOB ELIX 10 ML, MAG HYDROX/ALUMINUM HYD/SIMETH 30 ML, LIDOCAINE 2% VI... PO (23:15)
--- NOTE | 2025-04-01 23:19 | PC.NURSE ---
Report to Anel MORRIS -care of patient turned over. Patient and spouse made aware of change release manager
[2025-04-01 23:33] LABS: Add Urine Microscopic? YES; Appearance Urine Clear (Clear); Glucose Urine UA Negative (Negative); Leukocyte Esterase Ur Negative LEU/UL (Negative); Nitrate Urine Negative (Negative); Non Pathogenic Casts 0-2; Specific Grav Ur 1.009 (1.001-1.035)
[2025-04-01 23:52] LABS: Cannabinoid Screen Urine Negative (Negative)
[2025-04-02 00:01] VITALS: PULSE 122; RESP 17; O2SAT 100
[2025-04-02 00:17] VITALS: PULSE 129; RESP 18
[2025-04-02 00:30] VITALS: PULSE 132; RESP 17
[2025-04-02 00:31] VITALS: BP 133/89; PULSE 132; RESP 17
[2025-04-02 01:07] VITALS: PULSE 140; O2SAT 99
[2025-04-02 01:20] VITALS: PULSE 140
== END 2025-04-02 01:26 | disposition left against medical advice (07) ==
PROVIDERS: Nurse Practitioner Family; Student in an Organized Health Care Education/Training Program; Emergency Provider Registered Nurse
DX: K52.9 Noninfective gastroenteritis and colitis, unspecified (principal); R11.16 Cannabis hyperemesis syndrome; F12.90 Cannabis use, unspecified, uncomplicated; E86.0 Dehydration; D49.0 Neoplasm of unspecified behavior of digestive system; K31.9 Disease of stomach and duodenum, unspecified; R00.0 Tachycardia, unspecified; I45.10 Unspecified right bundle-branch block
CPT/HCPCS: 36415; 74177; 80053; 80307; 81001; 81025; 83605; 83690; 85025; 93005; 96361; 96372; 96374; 96375; 99283; 99284; A9270; J0360; J1630; J2270; J2405; J7030; Q9967